=== PATIENT | female | born 1965 | race Caucasian/White ===

== ENCOUNTER 2024-07-12 12:52 | Emergency (ER) | payer BC, SELFPAY ==
[2024-07-12 13:18] VITALS: BP 168/98
[2024-07-12 13:46] LABS: % Basophils 0.6 % (0-2); % Eosinophils 1.1 % (0-6); % Monocytes 10.8 % (1.7-9.3); % Neutrophils 52.5 % (42.2-75.2); Absolute Eosinophils 0.1 10^3/uL (0-0.7); Absolute Lymphocytes 1.7 10^3/uL (1.2-3.4); Absolute Monocytes 0.5 10^3/uL (0.1-0.6); Absolute Neutrophils 2.5 10^3/uL (1.4-6.5); Hemoglobin 14.8 g/dL (12.0-16.0); Mean Corp Hgb Conc. 34.4 g/dL (33.0-37.0); Mean Corpuscular Hgb 29.7 pg (27.0-31.0); Mean Corpuscular Volume 86.2 fL (81.0-99.0); Mean Platelet Volume 9.6 fL (7.4-10.4); Nucleated Red Blood Cells % 0 %; Platelet Count 244 10^3/uL (130-400); Red Blood Cell Count 4.99 10^6/uL (4.20-5.40); Red Cell Dist. Width 12.5 % (11.5-14.5); White Blood Cell Count 4.7 10^3/uL (4.8-10.8)
[2024-07-12 14:05] LABS: ALT (SGPT) 29 U/L (0-35); AST (SGOT) 26 U/L (14-36); Albumin 4.7 g/dl (3.5-5.0); Alkaline Phosphatase 56 U/L (38-126); Blood Urea Nitrogen 20 mg/dl (7-17); Calcium 9.8 mg/dl (8.4-10.2); Carbon Dioxide 29 mmol/L (22-30); Chloride 105 mmol/L (98-107); Glucose 105 mg/dl (70-99); Potassium 4.7 mmol/L (3.5-5.1); Sodium 142 mmol/L (135-145); Total Bilirubin 0.2 mg/dl (0.2-1.3); Total Protein 6.9 g/dl (6.3-8.2); eGFR > 60.00
[2024-07-12 14:17] LABS: Troponin I < 0.012 ng/ml
[2024-07-12 15:03] VITALS: BP 169/93
[2024-07-12 17:44] VITALS: BMI 24.2
[2024-07-12 17:56] VITALS: BP 150/92
--- NOTE | 2024-07-12 18:35 | ED.GENMED ---
History of Present Illness
General
Chief Complaint: Chest Pain
Time Seen by Provider: 07/12/24 18:11
History of Present Illness
History of Present Illness:
59-year-old otherwise healthy female presents to the emergency department for evaluation of intermittent left-sided chest discomfort for the past 2 to 3 days. Pain is random and without obvious provoking factors. Denies any obvious exertional or
positional nature. The pain is nonpleuritic. Waxes and wanes and last for several minutes, rated 4 out of 10 at maximum. No shortness of breath, fever, chills, or sweats. No history of similar pain. No nausea or vomiting. Non-smoker
Past History
Past History
ED Past Surgical History: None
Social History
Tobacco: Non-smoker
Alcohol: Occasional
Personal:
Living: with family
Review of Systems
Review of Systems
Allergies reviewed?: Yes
All Other Systems: ROS reviewed and negative except as documented in HPI and ROS
Phy Exam
Physical Exam
Physical Exam:
GEN: Well appearing, NAD, WDWN
HEENT: Oral mucosa moist, no scleral icterus
Cardiac: Regular rate and rhythm, no murmurs
Lung: No respiratory distress, no tachypnea, lungs clear to auscultation bilaterally
MSK: No gross deformity or injuries
Skin: Good color, no pallor or jaundice, no rashes
Neuro: AO x3, moves all extremities freely
Psych: Calm, cooperative
Scores
Heart Score for Chest Pain Patients
STEMI patient?: No
History: Slightly or Non-Suspicious
ECG: Normal
Age: >45 - <65 years
Risk Factors: No Risk Factors
Troponin: </= Normal Limit
Heart Score for Chest Pain Patients: 1
Heart Score Risk: 2.5% MACE over next 6 weeks
Course
Orders/Labs/Results
Orders:
Orders
07/12/24 12:53
Electrocardiogram (*1) Urgent
Reason for Study: Chest Pain
EKG- Treatment ONCE
07/12/24 13:30
Complete Blood Count/With Diff Urgent
Comprehensive Metabolic Panel Urgent
Troponin I Urgent
07/12/24 18:35
CR Chest - 2 Views Urgent
Comment:
Reason For Exam: chest pain
Abnormal Lab Results
07/12/24
13:30
WBC 4.7 L 10^3/uL
(4.8-10.8)
Monocytes % 10.8 H %
(1.7-9.3)
BUN 20 H mg/dl
(7-17)
Glucose 105 H mg/dl
(70-99)
07/12/24 13:30
07/12/24 13:30
Vital Signs
Initial and Last Documented VS:
Initial Vital Signs
Temp Pulse Resp BP Pulse Ox
97.8 F 79 16 168/98 98
07/12/24 13:18 07/12/24 13:18 07/12/24 13:18 07/12/24 13:18 07/12/24 13:18
Last Documented Vital Signs
Temp Pulse Resp BP Pulse Ox
97.9 F 80 17 134/87 95
07/12/24 15:03 07/12/24 19:08 07/12/24 19:08 07/12/24 19:08 07/12/24 19:08
MDM/Problems Addressed
MDM/Problems Addressed:
Intermittent pain without exertional component, not strongly suggestive of ACS. She is not on any exogenous hormones and has no recent immobilization to suggest PE. Chest x-ray is clear and labs/EKG are reassuring. Will recommend outpatient
primary care and cardiology evaluation. Likely musculoskeletal, recommend NSAIDs
Comment
Comment:
EKG independently interpreted by me shows normal sinus rhythm at a rate of [address] changes concerning for ischemia, QTc of 461
*Critical Care Note
Total Time (30-74mins, 75-104mins- exclusive of procedures): Not Applicable
ED Attending Note
-
Portions of this chart may have been created with voice recognition software.� Occasional wrong word or��sound alike� substitutions may have occurred due to the inherent limitations of voice recognition software.
Discharge Plan
Departure
Patient Disposition: Home (Routine Discharge)
Date of Disposition: 07/12/24
Time of Disposition: 19:06
Patient with high blood pressure during this ER visit?: No
Discharge Problem:
Atypical chest pain
Instructions: Chest Pain PCP Follow Up
Prescriptions:
No Action
ibuprofen 400 MG tablet
800 mg PO Q4HPRN PRN (Reason: migraines)
Multivitamin Drink
1 PO DAILY
hydrocodone-acetaminophen 5 MG/500 MG tablet
1 tab PO Q6HPRN PRN (Reason: PAIN) Qty: 10 0RF
hydrocodone-acetaminophen 5 MG/500 MG tablet
1 tab PO Q6HPRN PRN (Reason: PAIN) Qty: 10 0RF
Referrals:
Renzo Allan MD [Active] -
Activity Restrictions/Additional Instructions:
Return if symptoms worsen
Interventions
Interventions:
*Risk Screen - Suicide Last Done: 07/12/24 13:18
*General Assessment Last Done: 07/12/24 13:18
*Neglect/Abuse Screening Last Done: 07/12/24 13:18
ED- Fall Risk Assessment Last Done: 07/12/24 17:56
*ED COVID-19 Vaccine History Last Done: 07/12/24 17:45
*Nursing Disposition Last Done: 07/12/24 19:15
ED- Cardiac Assessment Last Done: 07/12/24 17:55
Discharge Date and Time
Discharge Date/Time: 07/12/24 19:52
Print Language: WOLOF
[2024-07-12 19:08] VITALS: BP 134/87
== END 2024-07-12 19:52 | disposition home or self-care (01) ==
LOC: EMR 12:52
PROVIDERS: Physician Assistant Medical; EMERGENCY PHYSICIAN Student in an Organized Health Care Education/Training Program; FAMILY PHYSICIAN Family Medicine
DX: R07.89 Other chest pain (principal)
CPT/HCPCS: 99283; 71046; 80053; 84484; 85025; 93005

== ENCOUNTER → 2025-07-07 08:10 | Outpatient (REF) | payer BC, SELFPAY | LOC: HWRCS 08:10 | PROVIDERS: ATTENDING PHYSICIAN Internal Medicine Cardiovascular Disease; FAMILY PHYSICIAN Family Medicine | DX: R06.09 Other forms of dyspnea (principal) | CPT/HCPCS: 93306 ==

== ENCOUNTER → 2025-07-09 07:48 | Outpatient (REF) | payer BC, SELFPAY | LOC: HWRCS 07:48 | PROVIDERS: ATTENDING PHYSICIAN Internal Medicine Cardiovascular Disease; FAMILY PHYSICIAN Family Medicine | DX: R06.09 Other forms of dyspnea (principal); R07.89 Other chest pain; R94.31 Abnormal electrocardiogram [ECG] [EKG] | CPT/HCPCS: 78452; 93017; A9500 ==

== ENCOUNTER → 2025-09-16 13:11 | Outpatient (REF) | payer BC, SELFPAY | LOC: HWWDC 13:11 | PROVIDERS: ATTENDING PHYSICIAN Family Medicine | DX: Z12.31 Encounter for screening mammogram for malignant neoplasm of breast (principal) | CPT/HCPCS: 77063; 77067 ==